=== PATIENT | male | born 1945 | race Hispanic/Latino ===

== ENCOUNTER 2021-08-26 20:45 | Emergency (ER) | payer MEDICARE ==
[~2021-08-26] VITALS: Ht 167.6 cm; Wt 80.3 kg
[~2021-08-26 20:45] MED LIST: ASPIRIN BUFFER325 MG PO; CHLORTHALIDONE25 MG PO; FLOMAX0.4 MG PO; HYZAAR 100-251 EACH PO; LEVAQUIN500 MG PO; LOPRESSOR25 MG PO; METOPROLOL SUCC50 MG PO; PANTOPRAZOLE SO40 MG PO; PEPCID20 MG PO; PRAVACHOL80 MG PO; RANEXA500 MG PO; ZESTRIL10 MG PO
[2021-08-26 21:03] LABS: BASOPHILS # (AUTO) 0.1 (0.0-0.1); BASOPHILS % 0.8 % (0.0-1.0); EOSINOPHILS # (AUTO) 0.3 (0.0-0.4); EOSINOPHILS % 4.1 % (0.0-6.0); HEMATOCRIT 36.6 % (38.2-49.6); HEMOGLOBIN 12.1 g/dL (14.0-18.0); LYMPHOCYTES # (AUTO) 2.7 (1.0-3.2); LYMPHOCYTES % 34.9 % (18.0-39.1); MEAN CORPUSCULAR HGB CONC 33.1 g/dL (31-35); MEAN CORPUSCULAR VOLUME 102.8 fL (81-99); MONOCYTES # (AUTO) 1.1 (0.2-0.8); MONOCYTES % 14.1 % (4.4-11.3); NEUTROPHILS # (AUTO) 3.6 (2.1-6.9); PLATELET COUNT 244 x10e3/uL (140-360); RED BLOOD COUNT 3.56 x10e6/uL (4.3-5.7); RED CELL DISTRIBUTION WIDTH 12.9 % (11.7-14.4)
[2021-08-26 21:12] LABS: INR 0.96; PROTHROMBIN TIME 13.7 seconds (11.9-14.5)
[2021-08-26 21:13] LABS: PARTIAL THROMBOPLASTIN TIME 30.7 seconds (23.8-35.5)
[2021-08-26 21:16] LABS: CLARITY,URINE CLOUDY (CLEAR); COLOR,URINE RED (YELLOW); LEUKOCYTE ESTERASE ,URINE LARGE (NEGATIVE); NITRITE,URINE POSITIVE (NEGATIVE)
[2021-08-26 21:17] LABS: KETONES,URINE TRACE (NEGATIVE); PROTEIN,URINE DIPSTICK >=300 (NEGATIVE); URINE UROBILINOGEN 1 mg/dL (0.2 - 1)
[2021-08-26 21:21] LABS: ALBUMIN 3.7 g/dL (3.5-5.0); ALBUMIN/GLOBULIN RATIO 0.9 (0.8-2.0); CALCIUM 8.5 mg/dL (8.4-10.2); CREATININE, SERUM 1.3 mg/dL (0.72-1.25)
[2021-08-26 21:23] LABS: RBC,URINE >50 /HPF (0-5)
[2021-08-26 21:24] LABS: BACTERIA,URINE FEW /HPF; EPITHELIAL CELLS,URINE FEW /LPF; HYALINE CASTS 0-1 (0-1); MUCUS,URINE FEW (RARE)
[2021-08-26] MEDS ORDERED: LIDOCAINE JELLY 2% 10ML URO-JET TOP ONE (22:00)
[2021-08-26] MEDS ORDERED: LIDOCAINE JELLY 2% 10ML URO-JET ONE (22:12)
[2021-08-27] MEDS ORDERED: ACETAMINOPHEN 325 MG TAB PO ONE (00:30)
== END 2021-08-27 00:40 | disposition home or self-care (01) ==
LOC: ER 20:48
DX: R31.9 Hematuria, unspecified (principal); N39.0 Urinary tract infection, site not specified; R33.9 Retention of urine, unspecified
CPT/HCPCS: 36415; 51700; 74176; 80053; 81001; 85025; 85610; 85730; 87086; 99284